=== PATIENT | female | born 1980 | race Caucasian/White ===

== ENCOUNTER → 2020-10-09 | Outpatient (CLI) | payer OTHER ==
[2006-07-02 07:20] VITALS: PULSE 96; TEMP 97.1
[~2020-10-09] MED LIST: BONTRIL SLOW-R105 MG PO; LEXAPRO 10MG10 MG PO; LEXAPRO10 MG PO; PHENTERMINE15 MG PO; PRENATAL VITAMI1 TA5 PO; PROTONIX 40MG T40 MG PO; VITAMIN D1000 IU PO; WELLBUTRIN SR150 M1 PO; WELLBUTRIN XL300 M1 PO
== END ==
LOC: MC.RAD 09:09
DX: Z12.31 Encounter for screening mammogram for malignant neoplasm of breast (principal)

== ENCOUNTER → 2021-10-23 | Outpatient (CLI) | payer OTHER ==
[2006-07-02 07:20] VITALS: PULSE 96; TEMP 97.1
== END ==
LOC: MC.RAD 08:42
DX: Z12.31 Encounter for screening mammogram for malignant neoplasm of breast (principal); N63.10 Unspecified lump in the right breast, unspecified quadrant

== ENCOUNTER → 2021-11-06 | Outpatient (CLI) | payer OTHER ==
[2006-07-02 07:20] VITALS: PULSE 96; TEMP 97.1
== END ==
LOC: MC.RAD 08:30
DX: N60.31 Fibrosclerosis of right breast (principal)

== ENCOUNTER → 2022-05-15 | Outpatient (CLI) | payer OTHER ==
[2006-07-02 07:20] VITALS: TEMP 97.1
== END ==
LOC: MC.RAD 08:54
DX: R92.8 Other abnormal and inconclusive findings on diagnostic imaging of breast (principal)

== ENCOUNTER → 2023-12-09 | Outpatient (CLI) | payer OTHER ==
[2006-07-02 07:20] VITALS: BP 120/68; PULSE 96; TEMP 97.1
== END ==
LOC: MC.RAD 08:32
DX: Z12.31 Encounter for screening mammogram for malignant neoplasm of breast (principal)